=== PATIENT | female | born 1990 | race Two or more races ===

== ENCOUNTER 2018-11-09 16:18 | Emergency (ER) | payer OTHER ==
[~2018-11-09] VITALS: Ht 154.9 cm; Wt 68.5 kg
--- NOTE | 2018-11-09 16:50 | NUR ---
ED Nurse Note: urine sent to lab . [facility] 137 ermd informed.
[2018-11-09 16:51] VITALS: BP 120/70
[2018-11-09 16:52] LABS: APPEARANCE,URINE CLEAR; BILIRUBIN, URINE NEGATIVE (NEGATIVE); COLOR,URINE PALE YELLOW; GLUCOSE, URINE (UA) NEGATIVE (NEGATIVE); KETONES,URINE NEGATIVE (NEGATIVE); LEUKOCYTE ESTERASE ,URINE NEGATIVE (NEGATIVE); NITRITE,URINE NEGATIVE (NEGATIVE); PH,URINE 7 (4.5-8.0); PROTEIN,URINE NEGATIVE (NEGATIVE); UROBILINOGEN,URINE NORMAL MG/DL (0.0-1.0)
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
--- NOTE | 2018-11-09 18:36 | NUR ---
ED Nurse Note: report given to Libia RIOS at [facility].
[2018-11-09 18:41] VITALS: BP 118/78
--- NOTE | 2018-11-09 19:09 | NUR ---
HAND-OFF: Report given to Corina RIOS.
[2018-11-09 20:04] VITALS: BP 116/74
[2018-11-09 20:10] VITALS: BP 116/74
--- NOTE | 2018-11-09 20:10 | NUR ---
ED Nurse Note: pt has been transferred with unit [facility] to [facility]. pt is aox4, on room air, self ambulatory, skin intact, and elf continent. pt denies pain and vss at this moment. pt accompanied by . all pt belongings have been given to pt.
== END 2018-11-09 20:10 | disposition short-term general hospital (02) ==
LOC: EMR 16:47
DX: S30.1XXA Contusion of abdominal wall, initial encounter (principal); V43.62XA Car passenger injured in collision with other type car in traffic accident, initial encounter; Y92.410 Unspecified street and highway as the place of occurrence of the external cause; O26.92 Pregnancy related conditions, unspecified, second trimester; Z3A.26 26 weeks gestation of pregnancy
CPT/HCPCS: 81003; 99282